=== PATIENT | male | born 1965 | race Caucasian/White ===

== ENCOUNTER 2019-11-25 08:45 | Observation (INO) ==
[2019-11-25 10:07] LABS: Basophils # 0.1 K/mcL (0.0-0.2); Basophils % 0.7 %; Eosinophils # 0.3 K/mcL (0.0-0.6); Eosinophils % 1.9 %; Hematocrit 52.2 % (37.5-50.1); Hemoglobin 17.6 g/dL (12.9-16.9); Immature Granulocytes % 0.8 % (0-4); Lymphocytes # 2.5 K/mcL (0.6-4.6); Lymphocytes % 17.8 %; Mean Corpuscular HGB Conc 33.7 g/dL (31.6-35.5); Mean Corpuscular Hemoglobin 30.5 pg (28.0-33.3); Mean Corpuscular Volume 90.5 fL (83.0-100.0); Monocytes # 1.1 K/mcL (0.0-1.3); Monocytes % 7.7 %; Neutrophils # 9.8 K/mcL (1.6-8.9); Platelet Count 262 K/mcL (140-400); Red Blood Count 5.77 M/mcL (4.19-5.50); Red Cell Distribution Width 13.5 % (11.5-14.5); Segmented Neutrophils % 71.1 %; White Blood Count 13.8 K/mcL (4.3-11.1)
[2019-11-25] MEDS ORDERED: Ipratropium/Albuterol Neb 3 ML IH ONE (10:08)
[2019-11-25] MEDS ORDERED: methylPREDNISolone 125 MG/2 ML VIAL IVP ONE (10:08)
[2019-11-25 10:31] LABS: BUN/Creatinine Ratio 14 (6-26); Blood Urea Nitrogen 17 mg/dL (6-20); Calcium 9.7 mg/dL (8.6-10.3); Carbon Dioxide 28 mEq/L (23-29); Chloride 100 mEq/L (98-107); Glucose 126 mg/dL (70-105); Osmolality,Calculated 289 (280-300); Potassium 4.5 mEq/L (3.5-5.1); Sodium 138 mEq/L (136-145); eGFR For African Americans > 60 (> 60); eGFR For Non-African Americans > 60 (> 60)
[2019-11-25 10:32] LABS: Troponin I < 0.03 ng/mL (< 0.04)
[2019-11-25] MEDS ORDERED: Naloxone 0.4 MG/ML INJ IVP PRN (12:01)
[2019-11-25] MEDS ORDERED: Ondansetron 4 MG/2 ML VIAL IVP PRN (12:01)
[2019-11-25] MEDS: Ringers Solution, Lactated 1,000 ML IVC SCH (14:13)
[2019-11-25] MEDS: Ipratropium/Albuterol Neb 3 ML IH SCH ×3 (15:32→23:27)
[2019-11-25 15:59] LABS: Adenovirus Not Detected (Not Detect); Bordetella Pertussis Not Detected (Not Detect); Chlamydophila pneumoniae Not Detected (Not Detect); Coronavirus 229E Not Detected (Not Detect); Coronavirus HKU1 Not Detected (Not Detect); Coronavirus NL63 Not Detected (Not Detect); Coronavirus OC43 Not Detected (Not Detect); Human Metapneumovirus Not Detected (Not Detect); Human Rhinovirus/Enterovirus DETECTED (Not Detect); Influenza A Subtype 2009 H1 Not Detected (Not Detect); Influenza B Not Detected (Not Detect); Mycoplasma pneumoniae Not Detected (Not Detect); Parainfluenza Virus 1 Not Detected (Not Detect); Parainfluenza Virus 2 Not Detected (Not Detect); Parainfluenza Virus 3 Not Detected (Not Detect); Parainfluenza Virus 4 Not Detected (Not Detect); Respiratory Syncytial Virus Not Detected (Not Detect)
[2019-11-25] MEDS: MethylPREDNISolone 40 MG/ML VIAL IVP SCH (18:26)
[2019-11-25] MEDS ORDERED: *HR* HYDROcodone/Acet 10/325 mg TABLET PO ONE (18:46)
[2019-11-25] MEDS ORDERED: Nitroglycerin 0.4 MG TAB.SUBL SL PRN (18:49)
[2019-11-25] MEDS: Metoprolol 100 MG TABLET PO SCH (21:51)
[2019-11-26] MEDS: Ipratropium/Albuterol Neb 3 ML IH SCH ×6 (03:49→23:24)
[2019-11-26] MEDS: Ringers Solution, Lactated 1,000 ML IVC SCH (05:25)
[2019-11-26] MEDS: MethylPREDNISolone 40 MG/ML VIAL IVP SCH ×2 (05:25→18:09)
[2019-11-26] MEDS ORDERED: ROFLUMILAST PO SCH (09:00)
[2019-11-26 10:29] LABS: Hematocrit 47.6 % (37.5-50.1); Hemoglobin 16.2 g/dL (12.9-16.9); Mean Corpuscular Hemoglobin 30.7 pg (28.0-33.3); Mean Corpuscular Volume 90.2 fL (83.0-100.0); Mean Platelet Volume 9.1 fL (9.4-12.4); Platelet Count 240 K/mcL (140-400); Red Blood Count 5.28 M/mcL (4.19-5.50); Red Cell Distribution Width 13.6 % (11.5-14.5); White Blood Count 14.3 K/mcL (4.3-11.1)
[2019-11-26] MEDS: Metoprolol 100 MG TABLET PO SCH ×2 (10:35→21:39)
[2019-11-26] MEDS: Aspirin Enteric Coated 81 MG Tablet PO SCH (10:35)
[2019-11-26 10:48] LABS: BUN/Creatinine Ratio 18 (6-26); Blood Urea Nitrogen 20 mg/dL (6-20); Calcium 9.7 mg/dL (8.6-10.3); Carbon Dioxide 28 mEq/L (23-29); Chloride 99 mEq/L (98-107); Glucose 190 mg/dL (70-105); Magnesium 1.7 mg/dL (1.6-2.6); Osmolality,Calculated 292 (280-300); Potassium 4.6 mEq/L (3.5-5.1); Sodium 137 mEq/L (136-145); eGFR For African Americans > 60 (> 60); eGFR For Non-African Americans > 60 (> 60)
[2019-11-26] MEDS ORDERED: Acetaminophen 325 MG TABLET PO PRN (10:51)
[2019-11-26] MEDS: *HR* HYDROcodone/Acet 5/325 mg TABLET PO PRN (11:18)
[2019-11-27] MEDS: *HR* HYDROcodone/Acet 5/325 mg TABLET PO PRN (00:02)
[2019-11-27] MEDS: Ipratropium/Albuterol Neb 3 ML IH SCH ×3 (04:11→11:14)
[2019-11-27 05:30] LABS: BUN/Creatinine Ratio 19 (6-26); Blood Urea Nitrogen 21 mg/dL (6-20); Calcium 8.9 mg/dL (8.6-10.3); Carbon Dioxide 26 mEq/L (23-29); Chloride 102 mEq/L (98-107); Glucose 153 mg/dL (70-105); Osmolality,Calculated 288 (280-300); Potassium 4.2 mEq/L (3.5-5.1); Sodium 136 mEq/L (136-145); eGFR For African Americans > 60 (> 60); eGFR For Non-African Americans > 60 (> 60)
[2019-11-27] MEDS: MethylPREDNISolone 40 MG/ML VIAL IVP SCH (05:36)
[2019-11-27 06:24] LABS: Basophils % 0.1 %; Eosinophils % 0.1 %; Hematocrit 46.7 % (37.5-50.1); Hemoglobin 15.4 g/dL (12.9-16.9); Immature Granulocytes % 0.8 % (0-4); Immature Platelets 4.3 % (1.1-6.1); Lymphocytes # 2.1 K/mcL (0.6-4.6); Lymphocytes % 13.9 %; Mean Corpuscular Hemoglobin 30.3 pg (28.0-33.3); Mean Corpuscular Volume 91.7 fL (83.0-100.0); Mean Platelet Volume 10.4 fL (9.4-12.4); Monocytes # 0.7 K/mcL (0.0-1.3); Monocytes % 4.9 %; Neutrophils # 12.1 K/mcL (1.6-8.9); Platelet Count 195 K/mcL (140-400); Red Blood Count 5.09 M/mcL (4.19-5.50); Red Cell Distribution Width 13.8 % (11.5-14.5); Segmented Neutrophils % 80.2 %; White Blood Count 15.1 K/mcL (4.3-11.1)
[2019-11-27 08:00] VITALS: BP 144/79
[2019-11-27] MEDS: Metoprolol 100 MG TABLET PO SCH (08:03)
[2019-11-27] MEDS: Aspirin Enteric Coated 81 MG Tablet PO SCH (08:03)
== END 2019-11-27 11:50 | disposition home or self-care (01) ==
LOC: EMEROOARM 08:45 → 2ANU 08:45 → SUATTDRO 12:07 → 2ANU 13:11
PROVIDERS: ADMIT Family Medicine; ATTEND Internal Medicine

== ENCOUNTER 2021-05-23 17:08 | Inpatient (IN) ==
[2021-05-23] MEDS ORDERED: cefTRIAXone 1,000 MG in Water for inj. (sterile) 10 ML IVP ONE (17:23)
[2021-05-23] MEDS ORDERED: Azithromycin 500 MG in 0.9 % Sodium Chloride 250 ML IVPB ONE (17:23)
[2021-05-23] MEDS ORDERED: *HR* FentaNYL (PF) 100 MCG/2 ML VIAL IVP ONE (17:25)
[2021-05-23] MEDS ORDERED: methylPREDNISolone 125 MG/2 ML VIAL IVP ONE (17:25)
[2021-05-23] MEDS ORDERED: Ipratropium/Albuterol Neb 3 ML IH ONE (17:25)
[2021-05-23] MEDS: 0.9 % Sodium Chloride 1,000 ML IVC SCH (17:45)
[2021-05-23 18:14] LABS: Basophils # 0.1 K/mcL (0.0-0.2); Basophils % 0.6 %; Eosinophils % 0.2 %; Hematocrit 49.7 % (37.5-50.1); Hemoglobin 16.8 g/dL (12.9-16.9); Immature Granulocytes % 0.7 % (0-4); Lymphocytes # 1.8 K/mcL (0.6-4.6); Lymphocytes % 17.7 %; Mean Corpuscular HGB Conc 33.8 g/dL (31.6-35.5); Mean Corpuscular Hemoglobin 31.4 pg (28.0-33.3); Mean Corpuscular Volume 92.9 fL (83.0-100.0); Monocytes % 9.9 %; Neutrophils # 7.3 K/mcL (1.6-8.9); Platelet Count 172 K/mcL (140-400); Red Blood Count 5.35 M/mcL (4.19-5.50); Red Cell Distribution Width 13.5 % (11.5-14.5); Segmented Neutrophils % 70.9 %; White Blood Count 10.3 K/mcL (4.3-11.1)
[2021-05-23] MEDS ORDERED: Albuterol 2.5 MG/3 ML NEBULIZER IH ONE ×2 (18:27→21:40)
[2021-05-23 18:30] LABS: INR 1.2; Prothrombin Time 13.3 Seconds (9.4-12.1)
[2021-05-23 18:32] LABS: Activated Partial Thrombo Time 34.3 Seconds (26.0-36.0)
[2021-05-23 18:36] LABS: Alanine Aminotransferase 14 Units/L (7-52); Albumin 4.1 g/dL (3.5-5.7); Albumin/Globulin Ratio 1.3 (1.1-2.2); Alkaline Phosphatase 72 Units/L (34-104); Aspartate Amino Transferase 19 Units/L (13-39); BUN/Creatinine Ratio 9 (6-26); Bilirubin,Direct 0.1 mg/dL (0.0-0.2); Bilirubin,Indirect 0.6 mg/dL (0.0-1.0); Bilirubin,Total 0.7 mg/dL (0.3-1.0); Blood Urea Nitrogen 11 mg/dL (6-20); Calcium 8.8 mg/dL (8.6-10.3); Carbon Dioxide 23 mEq/L (23-29); Chloride 101 mEq/L (98-107); Globulin 3.1 g/dL (2.4-3.5); Glucose 111 mg/dL (70-105); Lipase 10 Units/L (11-82); Magnesium 1.4 mg/dL (1.6-2.6); Osmolality,Calculated 278 (280-300); Phosphorous 1.4 mg/dL (2.7-4.5); Potassium 3.9 mEq/L (3.5-5.1); Sodium 134 mEq/L (136-145); Total Protein 7.2 g/dL (6.4-8.9); eGFR For African Americans > 60 (> 60); eGFR For Non-African Americans 59 (> 60)
[2021-05-23 19:20] LABS: Bilirubin,Urine Negative (Negative); Blood,Urine Small (Negative); Clarity,Urine Clear (Clear); Color,Urine Light-Yellow (Yellow); Glucose,Urine (UA) Normal (Normal); Ketones,Urine Negative (Negative); Leukocyte Esterase,Urine Negative (Negative); Mucus,Urine Few per lpf (None-Few); Nitrite,Urine Negative (Negative); PH,Urine 6.5 pH Units (5.0-8.0); Protein,Urine 100 mg/dL (Neg-Trace); Specific Gravity,Urine 1.017 (1.010-1.025); WBC,Urine 0-3 per hpf (0-3)
[2021-05-23 19:24] LABS: Troponin I < 0.03 ng/mL (< 0.04)
[2021-05-23] MEDS ORDERED: *HR* HYDROcodone/Acet 5/325 mg TABLET PO ONE (21:40)
[2021-05-23] MEDS ORDERED: Ondansetron 4 MG/2 ML VIAL IVP PRN (23:20)
[2021-05-23] MEDS ORDERED: Naloxone 0.4 MG/ML INJ IVP PRN (23:20)
[2021-05-23] MEDS ORDERED: Magnesium Oxide 400 MG TABLET PO ONE (23:23)
[2021-05-23] MEDS ORDERED: Perflutren Lipid Microsphere 1.3 ML in 0.9 % Sodium Chloride 8.7 ML IVP PRN (23:27)
[2021-05-24 00:26] LABS: Adenovirus Not Detected (Not Detect); Bordetella Pertussis Not Detected (Not Detect); Chlamydophila pneumoniae Not Detected (Not Detect); Coronavirus 229E Not Detected (Not Detect); Coronavirus HKU1 Not Detected (Not Detect); Coronavirus NL63 Not Detected (Not Detect); Coronavirus OC43 Not Detected (Not Detect); Human Metapneumovirus Not Detected (Not Detect); Human Rhinovirus/Enterovirus Not Detected (Not Detect); Influenza A Subtype 2009 H1 Not Detected (Not Detect); Influenza B Not Detected (Not Detect); Mycoplasma pneumoniae Not Detected (Not Detect); Parainfluenza Virus 1 Not Detected (Not Detect); Parainfluenza Virus 2 Not Detected (Not Detect); Parainfluenza Virus 3 DETECTED (Not Detect); Parainfluenza Virus 4 Not Detected (Not Detect); Respiratory Syncytial Virus Not Detected (Not Detect); SARS-CoV-2 Not Detected (Not Detect)
[2021-05-24] MEDS ORDERED: Melatonin 3 MG TABLET PO ONE (00:53)
[2021-05-24] MEDS: 0.9 % Sodium Chloride 1,000 ML IVC SCH (01:38)
[2021-05-24 01:50] LABS: Basophils % 0.2 %; Hematocrit 49.5 % (37.5-50.1); Hemoglobin 16.5 g/dL (12.9-16.9); Immature Granulocytes % 0.6 % (0-4); Lymphocytes # 0.4 K/mcL (0.6-4.6); Lymphocytes % 3.6 %; Mean Corpuscular HGB Conc 33.3 g/dL (31.6-35.5); Mean Corpuscular Hemoglobin 31.3 pg (28.0-33.3); Mean Corpuscular Volume 93.9 fL (83.0-100.0); Monocytes # 0.2 K/mcL (0.0-1.3); Platelet Count 161 K/mcL (140-400); Red Blood Count 5.27 M/mcL (4.19-5.50); Red Cell Distribution Width 13.9 % (11.5-14.5); Segmented Neutrophils % 93.6 %; White Blood Count 10.6 K/mcL (4.3-11.1)
[2021-05-24] MEDS: Acetaminophen 325 MG TABLET PO PRN ×3 (01:50→19:58)
[2021-05-24 01:59] LABS: INR 1.2; Prothrombin Time 13.3 Seconds (9.4-12.1)
[2021-05-24 02:07] LABS: BUN/Creatinine Ratio 11 (6-26); Blood Urea Nitrogen 15 mg/dL (6-20); Calcium 8.5 mg/dL (8.6-10.3); Carbon Dioxide 19 mEq/L (23-29); Chloride 100 mEq/L (98-107); Glucose 188 mg/dL (70-105); Magnesium 1.4 mg/dL (1.6-2.6); Osmolality,Calculated 288 (280-300); Phosphorous 2.9 mg/dL (2.7-4.5); Potassium 3.7 mEq/L (3.5-5.1); Sodium 136 mEq/L (136-145); eGFR For African Americans > 60 (> 60); eGFR For Non-African Americans 53 (> 60)
[2021-05-24 02:09] LABS: Troponin I < 0.03 ng/mL (< 0.04)
[2021-05-24] MEDS: Ipratropium/Albuterol Neb 3 ML IH PRN ×2 (02:15→08:18)
[2021-05-24 02:23] LABS: Thyroid Stimulating Hormone 0.031 mcIU/mL (0.340-5.600)
[2021-05-24] MEDS: *HR* HYDROcodone/Acet 5/325 mg TABLET PO PRN ×3 (06:21→22:40)
[2021-05-24] MEDS: *HR* Enoxaparin 40 MG/0.4 ML SYRINGE SQ SCH (08:13)
[2021-05-24] MEDS: methylPREDNISolone 125 MG/2 ML VIAL IVP SCH ×2 (08:13→16:42)
[2021-05-24] MEDS ORDERED: methylPREDNISolone 125 MG/2 ML VIAL IVP SCH (08:49)
[2021-05-24] MEDS: Tiotropium 10 INH DOSE IH SCH (10:49)
[2021-05-24] MEDS: Ipratropium/Albuterol Neb 3 ML IH SCH ×4 (10:49→19:59)
[2021-05-24] MEDS: Budesonide/Formoterol 160/4.5 1 PUFF INH IH SCH ×2 (11:13→19:56)
[2021-05-24] MEDS: Azithromycin 500 MG in 0.9 % Sodium Chloride 250 ML IVPB SCH (16:42)
[2021-05-24] MEDS ORDERED: *HR* Metoprolol 5 MG/5 ML VIAL IVP ONE (17:14)
[2021-05-24] MEDS: Metoprolol 100 MG TABLET PO SCH (19:59)
[2021-05-25] MEDS: Ipratropium/Albuterol Neb 3 ML IH SCH (00:12)
[2021-05-25] MEDS: methylPREDNISolone 125 MG/2 ML VIAL IVP SCH ×3 (00:46→16:02)
[2021-05-25 02:41] LABS: Basophils % 0.1 %; Hematocrit 51.4 % (37.5-50.1); Hemoglobin 16.2 g/dL (12.9-16.9); Immature Granulocytes % 0.7 % (0-4); Lymphocytes % 5.4 %; Mean Corpuscular HGB Conc 31.5 g/dL (31.6-35.5); Mean Corpuscular Hemoglobin 30.1 pg (28.0-33.3); Mean Corpuscular Volume 95.4 fL (83.0-100.0); Mean Platelet Volume 9.3 fL (9.4-12.4); Monocytes % 5.6 %; Neutrophils # 15.8 K/mcL (1.6-8.9); Platelet Count 171 K/mcL (140-400); Red Blood Count 5.39 M/mcL (4.19-5.50); Red Cell Distribution Width 13.8 % (11.5-14.5); Segmented Neutrophils % 88.2 %
[2021-05-25 02:43] LABS: White Blood Count 17.9 K/mcL (4.3-11.1)
[2021-05-25] MEDS: Levalbuterol Neb 1.25 MG/3 ML IH SCH ×4 (03:57→22:17)
[2021-05-25 06:02] LABS: BUN/Creatinine Ratio 16 (6-26); Blood Urea Nitrogen 19 mg/dL (6-20); Calcium 9.1 mg/dL (8.6-10.3); Carbon Dioxide 25 mEq/L (23-29); Chloride 100 mEq/L (98-107); Glucose 150 mg/dL (70-105); Osmolality,Calculated 281 (280-300); Potassium 4.8 mEq/L (3.5-5.1); Sodium 133 mEq/L (136-145); eGFR For African Americans > 60 (> 60); eGFR For Non-African Americans > 60 (> 60)
[2021-05-25] MEDS: *HR* HYDROcodone/Acet 5/325 mg TABLET PO PRN ×3 (06:54→22:51)
[2021-05-25] MEDS: lisinopriL 10 MG TABLET PO SCH (08:31)
[2021-05-25] MEDS: Metoprolol 100 MG TABLET PO SCH ×2 (08:31→20:27)
[2021-05-25] MEDS: Aspirin Enteric Coated 81 MG Tablet PO SCH (08:31)
[2021-05-25] MEDS: *HR* Enoxaparin 40 MG/0.4 ML SYRINGE SQ SCH (08:36)
[2021-05-25] MEDS ORDERED: Ipratropium Neb 0.5 MG NEBULIZER IH SCH (10:00)
[2021-05-25] MEDS: Acetaminophen 325 MG TABLET PO PRN ×2 (10:50→18:08)
[2021-05-25] MEDS: Tiotropium 10 INH DOSE IH SCH (10:58)
[2021-05-25] MEDS: Budesonide/Formoterol 160/4.5 1 PUFF INH IH SCH ×2 (10:58→22:17)
[2021-05-25] MEDS: Azithromycin 500 MG in 0.9 % Sodium Chloride 250 ML IVPB SCH (16:54)
[2021-05-26] MEDS: methylPREDNISolone 125 MG/2 ML VIAL IVP SCH ×3 (00:42→16:18)
[2021-05-26] MEDS: Levalbuterol Neb 1.25 MG/3 ML IH SCH ×4 (03:44→21:45)
[2021-05-26 05:37] LABS: Basophils % 0.1 %; Hematocrit 47.5 % (37.5-50.1); Immature Granulocytes % 0.7 % (0-4); Lymphocytes # 1.4 K/mcL (0.6-4.6); Lymphocytes % 9.9 %; Mean Corpuscular HGB Conc 31.6 g/dL (31.6-35.5); Mean Corpuscular Hemoglobin 30.5 pg (28.0-33.3); Mean Corpuscular Volume 96.5 fL (83.0-100.0); Mean Platelet Volume 9.6 fL (9.4-12.4); Monocytes % 7.2 %; Neutrophils # 11.2 K/mcL (1.6-8.9); Platelet Count 183 K/mcL (140-400); Red Blood Count 4.92 M/mcL (4.19-5.50); Red Cell Distribution Width 13.8 % (11.5-14.5); Segmented Neutrophils % 82.1 %; White Blood Count 13.6 K/mcL (4.3-11.1)
[2021-05-26 05:50] LABS: BUN/Creatinine Ratio 23 (6-26); Blood Urea Nitrogen 32 mg/dL (6-20); Calcium 8.8 mg/dL (8.6-10.3); Carbon Dioxide 28 mEq/L (23-29); Chloride 99 mEq/L (98-107); Glucose 149 mg/dL (70-105); Osmolality,Calculated 292 (280-300); Potassium 4.4 mEq/L (3.5-5.1); Sodium 136 mEq/L (136-145); eGFR For African Americans > 60 (> 60); eGFR For Non-African Americans 54 (> 60)
[2021-05-26] MEDS: *HR* Enoxaparin 40 MG/0.4 ML SYRINGE SQ SCH (08:02)
[2021-05-26] MEDS: lisinopriL 10 MG TABLET PO SCH (08:03)
[2021-05-26] MEDS: Aspirin Enteric Coated 81 MG Tablet PO SCH (08:03)
[2021-05-26] MEDS: Metoprolol 100 MG TABLET PO SCH ×2 (08:03→21:55)
[2021-05-26] MEDS: *HR* HYDROcodone/Acet 5/325 mg TABLET PO PRN ×2 (08:03→16:17)
[2021-05-26] MEDS: Tiotropium 10 INH DOSE IH SCH (10:28)
[2021-05-26] MEDS: Budesonide/Formoterol 160/4.5 1 PUFF INH IH SCH ×2 (10:28→21:46)
[2021-05-26] MEDS: Acetaminophen 325 MG TABLET PO PRN ×2 (11:56→21:30)
[2021-05-26] MEDS: Carbamide Peroxide 150 DROP/15 ML BOTTLE BOTH EARS SCH ×2 (13:19→21:31)
[2021-05-26] MEDS: Azithromycin 500 MG in 0.9 % Sodium Chloride 250 ML IVPB SCH (16:16)
[2021-05-27] MEDS: methylPREDNISolone 125 MG/2 ML VIAL IVP SCH ×3 (00:13→16:54)
[2021-05-27] MEDS: *HR* HYDROcodone/Acet 5/325 mg TABLET PO PRN ×3 (00:20→16:54)
[2021-05-27 01:22] LABS: Basophils % 0.1 %; Hematocrit 46.2 % (37.5-50.1); Hemoglobin 15.3 g/dL (12.9-16.9); Immature Granulocytes % 0.6 % (0-4); Lymphocytes # 0.9 K/mcL (0.6-4.6); Lymphocytes % 8.7 %; Mean Corpuscular HGB Conc 33.1 g/dL (31.6-35.5); Mean Corpuscular Hemoglobin 31.4 pg (28.0-33.3); Mean Corpuscular Volume 94.7 fL (83.0-100.0); Mean Platelet Volume 9.6 fL (9.4-12.4); Monocytes # 0.7 K/mcL (0.0-1.3); Monocytes % 6.1 %; Neutrophils # 9.1 K/mcL (1.6-8.9); Platelet Count 186 K/mcL (140-400); Red Blood Count 4.88 M/mcL (4.19-5.50); Red Cell Distribution Width 13.6 % (11.5-14.5); Segmented Neutrophils % 84.5 %; White Blood Count 10.8 K/mcL (4.3-11.1)
[2021-05-27 01:45] LABS: BUN/Creatinine Ratio 22 (6-26); Blood Urea Nitrogen 26 mg/dL (6-20); Calcium 8.7 mg/dL (8.6-10.3); Carbon Dioxide 24 mEq/L (23-29); Chloride 99 mEq/L (98-107); Glucose 195 mg/dL (70-105); Osmolality,Calculated 292 (280-300); Potassium 3.9 mEq/L (3.5-5.1); Sodium 136 mEq/L (136-145); eGFR For African Americans > 60 (> 60); eGFR For Non-African Americans > 60 (> 60)
[2021-05-27] MEDS: Levalbuterol Neb 1.25 MG/3 ML IH SCH ×4 (03:53→22:14)
[2021-05-27] MEDS: Acetaminophen 325 MG TABLET PO PRN ×3 (04:19→21:14)
[2021-05-27] MEDS: *HR* Enoxaparin 40 MG/0.4 ML SYRINGE SQ SCH (05:42)
[2021-05-27] MEDS: Metoprolol 100 MG TABLET PO SCH ×2 (08:27→21:14)
[2021-05-27] MEDS: lisinopriL 10 MG TABLET PO SCH (08:27)
[2021-05-27] MEDS: Aspirin Enteric Coated 81 MG Tablet PO SCH (08:27)
[2021-05-27] MEDS: Carbamide Peroxide 150 DROP/15 ML BOTTLE BOTH EARS SCH ×2 (08:28→21:14)
[2021-05-27 09:32] LABS: ABG Base Excess 4 mEq/L (-2 to 3); ABG HCO3 31 mEq/L (21-27); ABG Oxygen Saturation 97 % (95-98); ABG PCO2 56 mmHg (35-45); ABG PH 7.35 pH Units (7.32-7.45); ABG PO2 95 mmHg (85-104); ABG TCO2 33 mEq/L (20-26)
[2021-05-27] MEDS: Budesonide/Formoterol 160/4.5 1 PUFF INH IH SCH ×2 (10:24→22:14)
[2021-05-27] MEDS: Tiotropium 10 INH DOSE IH SCH (10:24)
[2021-05-27] MEDS: Azithromycin 500 MG in 0.9 % Sodium Chloride 250 ML IVPB SCH (16:54)
[2021-05-28] MEDS: methylPREDNISolone 125 MG/2 ML VIAL IVP SCH ×2 (00:23→08:07)
[2021-05-28] MEDS: *HR* HYDROcodone/Acet 5/325 mg TABLET PO PRN ×3 (01:25→17:56)
[2021-05-28 03:15] LABS: Basophils % 0.2 %; Hematocrit 45.1 % (37.5-50.1); Immature Granulocytes % 0.6 % (0-4); Lymphocytes # 1.2 K/mcL (0.6-4.6); Mean Corpuscular HGB Conc 33.3 g/dL (31.6-35.5); Mean Corpuscular Hemoglobin 31.3 pg (28.0-33.3); Mean Corpuscular Volume 94.2 fL (83.0-100.0); Mean Platelet Volume 9.5 fL (9.4-12.4); Monocytes # 0.7 K/mcL (0.0-1.3); Neutrophils # 8.2 K/mcL (1.6-8.9); Platelet Count 199 K/mcL (140-400); Red Blood Count 4.79 M/mcL (4.19-5.50); Red Cell Distribution Width 13.3 % (11.5-14.5); Segmented Neutrophils % 80.2 %; White Blood Count 10.2 K/mcL (4.3-11.1)
[2021-05-28 03:30] LABS: BUN/Creatinine Ratio 18 (6-26); Blood Urea Nitrogen 20 mg/dL (6-20); Calcium 8.4 mg/dL (8.6-10.3); Carbon Dioxide 31 mEq/L (23-29); Chloride 101 mEq/L (98-107); Glucose 144 mg/dL (70-105); Osmolality,Calculated 291 (280-300); Potassium 4.7 mEq/L (3.5-5.1); Sodium 138 mEq/L (136-145); eGFR For African Americans > 60 (> 60); eGFR For Non-African Americans > 60 (> 60)
[2021-05-28] MEDS: Levalbuterol Neb 1.25 MG/3 ML IH SCH ×4 (03:52→22:26)
[2021-05-28] MEDS: *HR* Enoxaparin 40 MG/0.4 ML SYRINGE SQ SCH (05:37)
[2021-05-28] MEDS: lisinopriL 10 MG TABLET PO SCH (08:07)
[2021-05-28] MEDS: Metoprolol 100 MG TABLET PO SCH ×2 (08:07→19:51)
[2021-05-28] MEDS: Aspirin Enteric Coated 81 MG Tablet PO SCH (08:07)
[2021-05-28] MEDS: Carbamide Peroxide 150 DROP/15 ML BOTTLE BOTH EARS SCH ×2 (08:29→21:34)
[2021-05-28] MEDS ORDERED: Isovue-370 500 ML BOTTLE IVP ONE (10:24)
[2021-05-28] MEDS: Budesonide/Formoterol 160/4.5 1 PUFF INH IH SCH ×2 (10:30→22:26)
[2021-05-28] MEDS: Tiotropium 10 INH DOSE IH SCH (10:30)
[2021-05-28] MEDS: ALPRAZolam 0.5 MG TABLET PO PRN (12:15)
[2021-05-28] MEDS: MethylPREDNISolone 40 MG/ML VIAL IVP SCH (19:51)
[2021-05-29] MEDS: ALPRAZolam 0.5 MG TABLET PO PRN ×2 (00:29→10:43)
[2021-05-29] MEDS: Melatonin 3 MG TABLET PO PRN (02:28)
[2021-05-29] MEDS: *HR* HYDROcodone/Acet 5/325 mg TABLET PO PRN ×3 (02:28→18:53)
[2021-05-29] MEDS: Levalbuterol Neb 1.25 MG/3 ML IH SCH ×4 (03:52→22:22)
[2021-05-29] MEDS: *HR* Enoxaparin 40 MG/0.4 ML SYRINGE SQ SCH (05:11)
[2021-05-29 06:48] LABS: Hematocrit 46.5 % (37.5-50.1); Hemoglobin 15.3 g/dL (12.9-16.9); Mean Corpuscular HGB Conc 32.9 g/dL (31.6-35.5); Mean Corpuscular Hemoglobin 31.3 pg (28.0-33.3); Mean Corpuscular Volume 95.1 fL (83.0-100.0); Mean Platelet Volume 9.3 fL (9.4-12.4); Platelet Count 216 K/mcL (140-400); Red Blood Count 4.89 M/mcL (4.19-5.50); Red Cell Distribution Width 13.2 % (11.5-14.5); White Blood Count 10.8 K/mcL (4.3-11.1)
[2021-05-29 07:09] LABS: BUN/Creatinine Ratio 22 (6-26); Blood Urea Nitrogen 23 mg/dL (6-20); Calcium 8.6 mg/dL (8.6-10.3); Carbon Dioxide 31 mEq/L (23-29); Chloride 101 mEq/L (98-107); Glucose 134 mg/dL (70-105); Osmolality,Calculated 290 (280-300); Potassium 4.5 mEq/L (3.5-5.1); Sodium 137 mEq/L (136-145); eGFR For African Americans > 60 (> 60); eGFR For Non-African Americans > 60 (> 60)
[2021-05-29] MEDS: Carbamide Peroxide 150 DROP/15 ML BOTTLE BOTH EARS SCH ×2 (07:10→21:49)
[2021-05-29] MEDS: Aspirin Enteric Coated 81 MG Tablet PO SCH (08:08)
[2021-05-29] MEDS: Metoprolol 100 MG TABLET PO SCH ×2 (08:09→21:19)
[2021-05-29] MEDS: MethylPREDNISolone 40 MG/ML VIAL IVP SCH ×2 (08:09→21:19)
[2021-05-29] MEDS: lisinopriL 10 MG TABLET PO SCH (08:09)
[2021-05-29] MEDS: Tiotropium 10 INH DOSE IH SCH (10:49)
[2021-05-29] MEDS: Budesonide/Formoterol 160/4.5 1 PUFF INH IH SCH ×2 (10:50→22:22)
[2021-05-29] MEDS ORDERED: Furosemide 20 MG/2 ML VIAL IVP ONE (10:59)
[2021-05-30] MEDS: Melatonin 3 MG TABLET PO PRN (00:05)
[2021-05-30] MEDS: ALPRAZolam 0.5 MG TABLET PO PRN ×2 (00:05→11:58)
[2021-05-30] MEDS: Levalbuterol Neb 1.25 MG/3 ML IH SCH ×4 (03:38→21:11)
[2021-05-30] MEDS: *HR* HYDROcodone/Acet 5/325 mg TABLET PO PRN ×4 (03:47→22:26)
[2021-05-30] MEDS: *HR* Enoxaparin 40 MG/0.4 ML SYRINGE SQ SCH (06:26)
[2021-05-30] MEDS: Carbamide Peroxide 150 DROP/15 ML BOTTLE BOTH EARS SCH ×2 (07:02→20:27)
[2021-05-30] MEDS: Aspirin Enteric Coated 81 MG Tablet PO SCH (07:34)
[2021-05-30] MEDS: lisinopriL 10 MG TABLET PO SCH (07:34)
[2021-05-30] MEDS: MethylPREDNISolone 40 MG/ML VIAL IVP SCH ×2 (07:34→20:28)
[2021-05-30] MEDS: Metoprolol 100 MG TABLET PO SCH ×2 (07:34→20:27)
[2021-05-30] MEDS: Tiotropium 10 INH DOSE IH SCH (09:54)
[2021-05-30] MEDS: Budesonide/Formoterol 160/4.5 1 PUFF INH IH SCH ×2 (09:54→21:11)
[2021-05-31] MEDS: ALPRAZolam 0.5 MG TABLET PO PRN ×2 (00:08→11:45)
[2021-05-31] MEDS: Levalbuterol Neb 1.25 MG/3 ML IH SCH ×4 (03:29→21:58)
[2021-05-31] MEDS: *HR* HYDROcodone/Acet 5/325 mg TABLET PO PRN ×3 (05:25→17:27)
[2021-05-31] MEDS: *HR* Enoxaparin 40 MG/0.4 ML SYRINGE SQ SCH (05:25)
[2021-05-31] MEDS: Carbamide Peroxide 150 DROP/15 ML BOTTLE BOTH EARS SCH (07:13)
[2021-05-31] MEDS: MethylPREDNISolone 40 MG/ML VIAL IVP SCH ×2 (07:37→20:25)
[2021-05-31] MEDS: Metoprolol 100 MG TABLET PO SCH ×2 (07:38→20:25)
[2021-05-31] MEDS: Aspirin Enteric Coated 81 MG Tablet PO SCH (07:38)
[2021-05-31] MEDS: Budesonide/Formoterol 160/4.5 1 PUFF INH IH SCH ×2 (10:02→21:58)
[2021-05-31] MEDS: Tiotropium 10 INH DOSE IH SCH (10:02)
[2021-06-01] MEDS: *HR* HYDROcodone/Acet 5/325 mg TABLET PO PRN ×4 (00:21→20:34)
[2021-06-01] MEDS: ALPRAZolam 0.5 MG TABLET PO PRN ×2 (00:21→12:21)
[2021-06-01] MEDS: Levalbuterol Neb 1.25 MG/3 ML IH SCH ×4 (03:37→22:05)
[2021-06-01 05:14] LABS: Hematocrit 48.3 % (37.5-50.1); Hemoglobin 16.1 g/dL (12.9-16.9); Mean Corpuscular HGB Conc 33.3 g/dL (31.6-35.5); Mean Corpuscular Hemoglobin 31.3 pg (28.0-33.3); Mean Platelet Volume 8.8 fL (9.4-12.4); Platelet Count 287 K/mcL (140-400); Red Blood Count 5.14 M/mcL (4.19-5.50); Red Cell Distribution Width 13.3 % (11.5-14.5); White Blood Count 15.9 K/mcL (4.3-11.1)
[2021-06-01] MEDS: *HR* Enoxaparin 40 MG/0.4 ML SYRINGE SQ SCH (05:35)
[2021-06-01 05:36] LABS: BUN/Creatinine Ratio 19 (6-26); Blood Urea Nitrogen 24 mg/dL (6-20); Calcium 8.5 mg/dL (8.6-10.3); Carbon Dioxide 32 mEq/L (23-29); Chloride 97 mEq/L (98-107); Glucose 153 mg/dL (70-105); Osmolality,Calculated 293 (280-300); Potassium 4.4 mEq/L (3.5-5.1); Sodium 138 mEq/L (136-145); eGFR For African Americans > 60 (> 60); eGFR For Non-African Americans 60 (> 60)
[2021-06-01] MEDS: Aspirin Enteric Coated 81 MG Tablet PO SCH (07:12)
[2021-06-01] MEDS: MethylPREDNISolone 40 MG/ML VIAL IVP SCH (07:12)
[2021-06-01] MEDS: Metoprolol 100 MG TABLET PO SCH ×2 (07:12→20:34)
[2021-06-01] MEDS: Budesonide/Formoterol 160/4.5 1 PUFF INH IH SCH ×2 (09:59→22:05)
[2021-06-01] MEDS: Tiotropium 10 INH DOSE IH SCH (10:00)
[2021-06-01] MEDS: Acetaminophen 325 MG TABLET PO PRN (17:05)
[2021-06-01] MEDS: Melatonin 3 MG TABLET PO PRN (20:34)
[2021-06-02] MEDS: ALPRAZolam 0.5 MG TABLET PO PRN ×2 (00:16→11:45)
[2021-06-02] MEDS: Levalbuterol Neb 1.25 MG/3 ML IH SCH ×3 (03:18→15:31)
[2021-06-02] MEDS: *HR* HYDROcodone/Acet 5/325 mg TABLET PO PRN ×3 (03:33→15:34)
[2021-06-02] MEDS: *HR* Enoxaparin 40 MG/0.4 ML SYRINGE SQ SCH (05:31)
[2021-06-02] MEDS: Aspirin Enteric Coated 81 MG Tablet PO SCH (07:35)
[2021-06-02] MEDS: Metoprolol 100 MG TABLET PO SCH (07:35)
[2021-06-02] MEDS ORDERED: MethylPREDNISolone 40 MG/ML VIAL IVP SCH (09:00)
[2021-06-02] MEDS: Tiotropium 10 INH DOSE IH SCH (09:42)
[2021-06-02] MEDS: Budesonide/Formoterol 160/4.5 1 PUFF INH IH SCH (09:42)
[2021-06-02 10:22] VITALS: BP 124/65
[2021-06-02] MEDS: Acetaminophen 325 MG TABLET PO PRN (14:24)
== END 2021-06-02 17:39 | disposition home or self-care (01) | DRG 189 ==
LOC: EMEROOARM 17:08 → 2ANU 17:08 → SUATTDRO 22:57 → 2ANU 23:51 → SUATTDRO 05-25 12:42
PROVIDERS: ADMIT Student in an Organized Health Care Education/Training Program; ATTEND Internal Medicine